=== PATIENT | female | born 1995 | race Caucasian/White ===

== ENCOUNTER 2016-09-23 12:09 | Emergency (ER) | payer OTHER ==
[~2016-09-23] VITALS: Ht 170.1 cm; Wt 54.4 kg
[~2016-09-23 12:09] MED LIST: COLACE100 MG PO; FEROSUL325 MG PO; FIORICET 50-301 EACH PO; FLINTSTONES W/I1 CTB PO; FLINTSTONES1 CTB; MACROBID100 M1 PO; MIRALAX POWDER17 G1 PO; MOTRIN 800 MG E4 TAB PO; MOTRIN400 MG PO; MOTRIN600 MG PO; Motrin,Rufen800 MG PO; NAPROSYN500 MG PO; NKHM; PERCOCET 325 MG1 TA7 PO; PHENERGAN25 M1 PO; PRENATAL ONE D1 EACH PO; TOBRADEX 0.1%-0.5 ML OPH; TUMS 500500 MG PO; ZANTAC150 MG PO; ZITHROMAX Z PA250 MG PO; Zofran4 MG PO
[2016-09-23 12:19] VITALS: BP 105/58
[2016-09-23] MEDS ORDERED: CEPHALEXIN500 M1 PO (12:27)
[2016-11-12] MEDS ORDERED: KEFLEX500 M1 PO (01:05)
[2016-11-12] MEDS ORDERED: PHENERGAN25 M3 PO (01:05)
== END 2016-09-23 14:01 | disposition home or self-care (01) ==
LOC: ED 12:09
DX: H60.392 Other infective otitis externa, left ear (principal); F17.200 Nicotine dependence, unspecified, uncomplicated; Z88.1 Allergy status to other antibiotic agents; Z88.2 Allergy status to sulfonamides

== ENCOUNTER 2016-10-19 21:48 | Emergency (ER) | payer OTHER ==
[~2016-10-19] VITALS: Ht 170.1 cm; Wt 54.4 kg
[~2016-10-19 21:48] MED LIST changes: +CEPHALEXIN500 M1 PO
[2016-10-19 22:14] VITALS: BP 131/76
[2016-10-19 22:44] LABS: BASO % 0.9 % (0.0-1.0); EOS # 0.1 10*3/uL (0.0-0.4); EOS % 1.4 % (1.0-4.0); HEMATOCRIT 37.9 % (37.0-47.0); HEMOGLOBIN 13.2 g/dl (12.0-16.0); LYMPH # 1.3 10*3/uL (1.3-4.4); LYMPH % 36.8 % (27.0-41.0); MEAN CELL VOLUME 89.4 fl (81.0-99.0); MEAN CORPUSCULAR HGB 31.1 pg (27.0-31.0); MEAN CORPUSCULAR HGB CONC 34.8 g/dl (33.0-37.0); MEAN PLATELET VOLUME 11.2 fl (9.6-12.3); MONO # 0.5 10*3/uL (0.1-1.0); MONO % 15.4 % (3.0-9.0); NEUT # 1.6 10*3/uL (2.3-7.9); NEUT % 45.5 % (47.0-73.0); PLATELET COUNT AUTOMATED 121 10*3/uL (130-400); RED BLOOD COUNT 4.24 10*6/uL (4.10-5.10); RED CELL DISTRI WIDTH 12.1 % (0-14.5); WHITE BLOOD COUNT 3.5 10*3/uL (4.8-10.8)
[2016-10-19 22:53] LABS: BILIRUBIN NEGATIVE (NEGATIVE); BLOOD 3+ (NEGATIVE); CLARITY SL CLOUDY (CLEAR); COLOR YELLOW (YELLOW); GLUCOSE NEGATIVE (NEGATIVE); KETONE 1+ (NEGATIVE); LEUKO ESTERASE NEGATIVE (NEGATIVE); NITRITE NEGATIVE (NEGATIVE); PH 6.5 (5.0-9.0); PROTEIN NEGATIVE (NEGATIVE)
[2016-10-19 23:07] LABS: BACTERIA 1+; MUCOUS 3+; RBC 16-20 rbc/hpf (0-2); URINE REFLEX COMMENT YES (NO)
[2016-10-19 23:10] LABS: ALKALINE PHOSPHATASE 56 U/L (45-117); BILIRUBIN, TOTAL 1.8 mg/dl (0.2-1.0); BUN 5 mg/dl (7-24); CARBON DIOXIDE 25 mmol/L (21-32); CHLORIDE 104 mmol/L (98-107); EST GLOM FILT AFRICAN AMERICAN > 60 ml/min; GLUCOSE 87 mg/dL (65-99); POTASSIUM 3.5 mmol/L (3.5-5.1); SGOT/AST 14 IU/L (3-35); SGPT/ALT 20 U/L (12-78); SODIUM 140 mmol/L (136-145); TOTAL PROTEIN 7.5 gm/dL (6.4-8.2)
[2016-11-12] MEDS ORDERED: KEFLEX500 M1 PO (01:05)
[2016-11-12] MEDS ORDERED: PHENERGAN25 M3 PO (01:05)
== END 2016-10-19 23:48 | disposition home or self-care (01) ==
LOC: ED 21:48
PROVIDERS: Physician Assistant
DX: O20.0 Threatened abortion (principal); Z3A.01 Less than 8 weeks gestation of pregnancy; Z98.890 Other specified postprocedural states; Z88.2 Allergy status to sulfonamides; Z88.1 Allergy status to other antibiotic agents; Z88.8 Allergy status to other drugs, medicaments and biological substances

== ENCOUNTER 2017-10-27 20:24 | Emergency (ER) | payer OTHER ==
[~2017-10-27] VITALS: Ht 170.1 cm; Wt 54.4 kg
[~2017-10-27 20:24] MED LIST changes: +KEFLEX500 M1 PO; +PHENERGAN25 M3 PO
[2017-10-27 20:27] VITALS: BP 132/74
[2017-10-27] MEDS ORDERED: LEVAQUIN750 M1 PO (22:26)
== END 2017-10-27 23:31 | disposition home or self-care (01) ==
LOC: ED 20:24
DX: J18.1 Lobar pneumonia, unspecified organism (principal); Z98.890 Other specified postprocedural states; Z88.2 Allergy status to sulfonamides; Z88.1 Allergy status to other antibiotic agents; Z88.8 Allergy status to other drugs, medicaments and biological substances

== ENCOUNTER 2018-10-05 17:20 | Emergency (ER) | payer OTHER ==
[~2018-10-05] VITALS: Ht 167.6 cm; Wt 58.1 kg
[~2018-10-05 17:20] MED LIST changes: +LEVAQUIN750 M1 PO
[2018-10-05 17:22] VITALS: BP 110/70
[2018-10-05] MEDS ORDERED: ACYCLOVIR800 MG PO (17:36)
== END 2018-10-05 19:19 | disposition home or self-care (01) ==
LOC: ED 17:20
DX: B02.9 Zoster without complications (principal); M54.6 Pain in thoracic spine; Z88.2 Allergy status to sulfonamides

== ENCOUNTER 2019-08-16 09:57 | Emergency (ER) | payer OTHER ==
[~2019-08-16] VITALS: Ht 170.1 cm; Wt 54.4 kg
[~2019-08-16 09:57] MED LIST changes: +ACYCLOVIR800 MG PO
[2019-08-16 09:58] VITALS: BP 132/65
[2019-08-16] MEDS ORDERED: PREDNISONE50 MG PO (11:30)
[2019-08-16] MEDS ORDERED: ZITHROMAX250 MG PO (11:30)
[2019-08-16] MEDS ORDERED: ZYRTEC10 MG PO (11:30)
== END 2019-08-16 11:36 | disposition home or self-care (01) ==
LOC: ED 09:57
DX: J20.9 Acute bronchitis, unspecified (principal); B34.9 Viral infection, unspecified; F17.200 Nicotine dependence, unspecified, uncomplicated; Z88.2 Allergy status to sulfonamides

== ENCOUNTER 2020-01-29 21:41 | Emergency (ER) | payer OTHER ==
[~2020-01-29] VITALS: Ht 167.6 cm; Wt 59.0 kg
[~2020-01-29 21:41] MED LIST changes: +PREDNISONE50 MG PO; +ZITHROMAX250 MG PO; +ZYRTEC10 MG PO
[2020-01-29 21:52] VITALS: BP 141/91
== END 2020-01-29 21:57 | disposition home or self-care (01) ==
LOC: ED 21:41
DX: S61.211A Laceration without foreign body of left index finger without damage to nail, initial encounter (principal); F17.200 Nicotine dependence, unspecified, uncomplicated; Z88.2 Allergy status to sulfonamides; Z88.8 Allergy status to other drugs, medicaments and biological substances; Z79.899 Other long term (current) drug therapy; W45.8XXA Other foreign body or object entering through skin, initial encounter; Y93.89 Activity, other specified; Y92.89 Other specified places as the place of occurrence of the external cause; Y99.8 Other external cause status

== ENCOUNTER → 2020-04-18 | Outpatient (CLI) | payer OTHER | END | disposition home or self-care (01) | LOC: RAD 10:22 | DX: M53.3 Sacrococcygeal disorders, not elsewhere classified (principal) ==

== ENCOUNTER 2020-07-28 03:16 | Emergency (ER) | payer OTHER ==
[~2020-07-28] VITALS: Ht 167.6 cm; Wt 56.7 kg
[2020-07-28 03:25] VITALS: BP 154/89
[2020-07-28 03:58] LABS: BASO % 0.4 % (0.0-1.0); EOS # 0.1 10*3/uL (0.0-0.4); HEMATOCRIT 38.5 % (37.0-47.0); LYMPH # 1.2 10*3/uL (1.3-4.4); LYMPH % 23.4 % (27.0-41.0); MEAN CELL VOLUME 91.4 fl (81.0-99.0); MEAN CORPUSCULAR HGB 31.1 pg (27.0-31.0); MEAN PLATELET VOLUME 10.2 fl (9.6-12.3); MONO # 0.5 10*3/uL (0.1-1.0); MONO % 9.1 % (3.0-9.0); NEUT # 3.3 10*3/uL (2.3-7.9); NEUT % 64.9 % (47.0-73.0); PLATELET COUNT AUTOMATED 154 10*3/uL (130-400); RED BLOOD COUNT 4.21 10*6/uL (4.10-5.10); RED CELL DISTRI WIDTH 12.4 % (0-14.5); WHITE BLOOD COUNT 5.1 10*3/uL (4.8-10.8)
[2020-07-28 04:12] LABS: BILIRUBIN Negative (Negative); BLOOD 3+ (Negative); CLARITY Cloudy (Clear); COLOR Yellow (Yellow); GLUCOSE Negative (Negative); KETONE Negative (Negative); LEUKO ESTERASE 2+ (Negative); NITRITE Negative (Negative)
[2020-07-28 04:13] LABS: ALBUMIN 3.7 gm/dl (3.1-4.5); ALKALINE PHOSPHATASE 65 U/L (45-117); BUN 8 mg/dl (7-24); CHLORIDE 106 mmol/L (98-107); CREATININE 0.67 mg/dL (0.55-1.02); LIPASE 84 U/L (73-393); POTASSIUM 3.5 mmol/L (3.5-5.1); SGOT/AST 14 IU/L (3-35); SGPT/ALT 22 U/L (12-78); SODIUM 140 mmol/L (136-145)
[2020-07-28 04:21] LABS: BACTERIA 3+; RBC TNTC rbc/hpf (0-2); WBC 31-40 wbc/hpf (0-5)
== END 2020-07-28 10:14 | disposition left against medical advice (07) ==
LOC: ED 03:16
PROVIDERS: Emergency Medicine
DX: R10.32 Left lower quadrant pain (principal); Z88.2 Allergy status to sulfonamides; Z79.899 Other long term (current) drug therapy; Z53.29 Procedure and treatment not carried out because of patient's decision for other reasons

== ENCOUNTER → 2021-01-23 | Outpatient (CLI) | payer OTHER | END | disposition home or self-care (01) | LOC: RAD 10:30 | PROVIDERS: ATTEND Family Medicine | DX: M54.5 Low back pain (principal); J34.89 Other specified disorders of nose and nasal sinuses; Z87.828 Personal history of other (healed) physical injury and trauma ==

== ENCOUNTER 2021-03-28 15:35 | Emergency (ER) | payer OTHER ==
[~2021-03-28] VITALS: Ht 167.6 cm; Wt 59.0 kg
[2021-03-28 16:19] VITALS: BP 123/83
== END 2021-03-28 18:09 | disposition left against medical advice (07) ==
LOC: ED 15:35
DX: R42 Dizziness and giddiness (principal); R11.0 Nausea; Z53.21 Procedure and treatment not carried out due to patient leaving prior to being seen by health care provider

== ENCOUNTER 2021-04-26 11:10 | Emergency (ER) | payer OTHER ==
[~2021-04-26] VITALS: Ht 167.6 cm; Wt 54.4 kg
[2021-04-26 11:31] VITALS: BP 102/55
[2021-04-26 12:43] LABS: BILIRUBIN Negative (Negative); BLOOD Negative (Negative); CLARITY Clear (Clear); COLOR Orange (Yellow); GLUCOSE Negative (Negative); KETONE Negative (Negative); LEUKO ESTERASE Negative (Negative); NITRITE Negative (Negative); SPECIFIC GRAVITY 1.015 (1.001-1.030)
[2021-04-26 12:46] LABS: BASO % 0.8 % (0.0-1.0); EOS # 0.1 10*3/uL (0.0-0.4); EOS % 2.5 % (1.0-4.0); HEMATOCRIT 42.1 % (37.0-47.0); LYMPH # 1.9 10*3/uL (1.3-4.4); LYMPH % 37.5 % (27.0-41.0); MEAN CELL VOLUME 94.6 fl (81.0-99.0); MEAN CORPUSCULAR HGB 31.7 pg (27.0-31.0); MEAN CORPUSCULAR HGB CONC 33.5 g/dl (33.0-37.0); MEAN PLATELET VOLUME 10.7 fl (9.6-12.3); MONO # 0.4 10*3/uL (0.1-1.0); MONO % 8.5 % (3.0-9.0); NEUT # 2.6 10*3/uL (2.3-7.9); NEUT % 50.5 % (47.0-73.0); PLATELET COUNT AUTOMATED 168 10*3/uL (130-400); RED BLOOD COUNT 4.45 10*6/uL (4.10-5.10); RED CELL DISTRI WIDTH 12.5 % (0-14.5); WHITE BLOOD COUNT 5.2 10*3/uL (4.8-10.8)
[2021-04-26 13:02] LABS: ALBUMIN 4.4 gm/dl (3.1-4.5); ALKALINE PHOSPHATASE 60 U/L (45-117); BUN 9 mg/dl (7-24); CHLORIDE 103 mmol/L (98-107); CREATININE 0.55 mg/dL (0.55-1.02); LIPASE 103 U/L (73-393); SGOT/AST 14 IU/L (3-35); SGPT/ALT 27 U/L (12-78); SODIUM 138 mmol/L (136-145); TOTAL PROTEIN 7.9 gm/dL (6.4-8.2)
[2021-04-26 13:04] LABS: BACTERIA 2+
[2021-04-26] MEDS ORDERED: CEPHALEXIN500 M1 PO (15:29)
== END 2021-04-26 16:17 | disposition home or self-care (01) ==
LOC: ED 11:10
PROVIDERS: Physician Assistant
DX: O23.91 Unspecified genitourinary tract infection in pregnancy, first trimester (principal); B96.89 Other specified bacterial agents as the cause of diseases classified elsewhere; O26.891 Other specified pregnancy related conditions, first trimester; M79.602 Pain in left arm; Z88.2 Allergy status to sulfonamides; Z88.8 Allergy status to other drugs, medicaments and biological substances; Z79.899 Other long term (current) drug therapy; Z79.2 Long term (current) use of antibiotics; Z3A.01 Less than 8 weeks gestation of pregnancy